=== PATIENT | female | born 1995 | race Caucasian/White ===

== ENCOUNTER 2018-06-11 12:38 | Emergency (ER) | payer BC ==
--- NOTE | 2018-06-11 14:38 | EDM.PDOC ---
ED HPI GENERAL MEDICAL PROBLEM - General Chief Complaint: Skin Complaint Stated Complaint: CYST Time Seen by Provider: 06/11/18 14:01 Source of Information: Reports: Patient, RN Notes Reviewed History Limitations: Reports: No Limitations - History of Present Illness INITIAL COMMENTS - FREE TEXT/NARRATIVE: Patient is a 22-year-old female who presents to the ED today for the evaluation of a painful cyst. She states she was seen at the walk-in clinic at [place] this morning and the provider there sent her to the ED for further evaluation. The patient noticed that she started to develop this cyst near her bikini line on and this has become bigger, harder and has essentially worsened since then. The walk-in clinic did draw labs and her white count was found to be 14,900. the patient denies any fevers/chills, nausea/vomiting/diarrhea, difficulty urinating, or vaginal discharge. She states that there has been no drainage from the cyst. She also notes that she has had cysts like this in the past and they have had to drain them and use packing material for further drainage. Groin Pain Score (Numeric/FACES): 4 - Related Data Allergies Allergy/AdvReac Type Severity Reaction Status Date / Time No Known Allergies Allergy Verified 06/11/18 13:09 Home Meds: Home Meds Doxycycline [Vibramycin] 100 mg PO BID #20 tab 06/11/18 [Rx] Past Medical History - Past Surgical History Musculoskeletal Surgical History: Reports: Other (See Below) Other Musculoskeletal Surgeries/Procedures:: ankle surgery Social & Family History - Tobacco Use Smoking Status *Q: Never Smoker Second Hand Smoke Exposure: No - Caffeine Use Caffeine Use: Reports: None - Recreational Drug Use Recreational Drug Use: No ED ROS GENERAL - Review of Systems Review Of Systems: See Below Constitutional: Denies: Fever, Chills, Malaise, Decreased Appetite, Weight Loss HEENT: Reports: No Symptoms Respiratory: Reports: No Symptoms Cardiovascular: Reports: No Symptoms Endocrine: Reports: No Symptoms GI/Abdominal: Reports: No Symptoms : Reports: No Symptoms Musculoskeletal: Reports: No Symptoms Skin: Reports: Lesions Neurological: Reports: No Symptoms Psychiatric: Reports: No Symptoms Hematologic/Lymphatic: Reports: No Symptoms Immunologic: Reports: No Symptoms ED EXAM, SKIN/RASH Exam: See Below Exam Limited By: No Limitations General Appearance: Alert, WD/WN, No Apparent Distress Throat/Mouth: Normal Inspection, Normal Oropharynx, No Airway Compromise Respiratory/Chest: No Respiratory Distress, Lungs Clear, Normal Breath Sounds, No Accessory Muscle Use, Chest Non-Tender Cardiovascular: Normal Peripheral Pulses, Regular Rate, Rhythm, No Murmur GI/Abdominal: Normal Bowel Sounds, Soft, Non-Tender, No Distention, Other (firm mass noted just above mons pubis, this is around 10cm in diameter, this is tender to palpation.) Extremities: Normal Inspection, Normal Capillary Refill Neurological: Alert, Oriented, Normal Cognition, No Motor/Sensory Deficits Psychiatric: Normal Affect, Normal Mood Skin: Warm, Dry, Intact, Normal Color, No Rash Location, Skin: Abdomen Characteristics: Erythematous Associated features: Tenderness Course - Vital Signs Last Recorded V/S: Last Vital Signs Temp 97.7 F 06/11/18 13:07 Pulse 90 06/11/18 13:07 Resp 16 06/11/18 13:07 BP Pulse Ox 100 06/11/18 13:07 - Re-Assessments/Exams Free Text/Narrative Re-Assessment/Exam: 06/11/18 14:38 Patient presents to the ED for the evaluation of a painful cyst in her bikini line. Although this cyst is quite large it is deep and would not be able to be drained in the ED today. The patient does not show any other systemic signs of illness will provide her with prescription for doxycycline twice a day for 10 days for resolution of this. She was educated on return precautions, she agrees to comply. Departure - Departure Time of Disposition: 14:39 Disposition: Home, Self-Care 01 Condition: Fair Clinical Impression: Abscess - Discharge Information *PRESCRIPTION DRUG MONITORING PROGRAM REVIEWED*: No *COPY OF PRESCRIPTION DRUG MONITORING REPORT IN PATIENT MAHNAZ: No Prescriptions: Doxycycline [Vibramycin] 100 mg PO BID #20 tab Instructions: Skin Abscess, [id number] Referrals: Jeni Mallory PA [Primary Care Provider] - Forms: ED Department Discharge Additional Instructions: You have been evaluated in the ED today for your cyst under bikini line. The cyst was too deep to be able to incise and drain at ER visit today, due to lack of other systemic symptoms like fever/chills it is likely that oral antibiotics will take care of this infection. A prescription for doxycycline 100 mg twice daily has been prescribed to you. This was sent to [facility] pharmacy, located on [address]. Please take this as directed. If you should develop fevers/chills, or other signs of the abscess spreading, such as difficulty urinating or drainage, this would be cause for concern and you should return immediately for re-evaluation. However please give the antibiotics at least 48 hours to see if this doesn't clear up the infection. Please return to the ED if your symptoms change or worsen.
== END 2018-06-11 14:47 | disposition home or self-care (01) ==
LOC: JD.ED 12:38
DX: L02.214 Cutaneous abscess of groin (principal)
CPT/HCPCS: 99283

== ENCOUNTER 2019-07-17 10:07 | Inpatient (IN) | payer BC ==
[~2019-07-17 10:07] MED LIST: Bupivacaine 0.25% 10 ML SDV ONE
[2019-07-17] MEDS ORDERED: Oxytocin/Lactated Ringers 10 UNIT/1,000 ML BAG IV SCH ×2 (10:15)
[2019-07-17] MEDS ORDERED: Sodium Chloride 0.9% 10 ML Syringe FLUSH PRN (10:15)
[2019-07-17] MEDS ORDERED: Ondansetron 4 MG/2 ML SDV IVPUSH PRN (10:15)
[2019-07-17] MEDS ORDERED: Nalbuphine 10 MG/ML Syringe IVPUSH PRN (10:15)
[2019-07-17] MEDS ORDERED: Acetaminophen 325 MG Tab PO PRN (10:15)
--- NOTE | 2019-07-17 10:18 | PCM.LDHP ---
L&D History of Present Illness - General Date of Service: 07/17/19 Admit Problem/Dx: Patient Status Order with Admit Dx/Problem 07/17/19 10:15 Patient Status [ADT] Routine Admission Diagnosis/Problem Admission Diagnosis/Problem Gestational hypertension Source of Information: Patient History Limitations: Reports: No Limitations - History of Present Illness Introduction:: Patient is a 23 y/o at 39 2/7 wks who presents from clinic for IOL after findings of 2 mild range BP's. Doing well otherwise. No symptoms. 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: Polycystic Ovaries : 1 Para: 0 LMP (Approximate): - Past Surgical History Musculoskeletal Surgical History: Reports: Other (See Below) Other Musculoskeletal Surgeries/Procedures:: ankle surgery Social & Family History - Tobacco Use Smoking Status *Q: Never Smoker - Caffeine Use Caffeine Use: Reports: None - Alcohol Use Alcohol Use History: No - Recreational Drug Use Recreational Drug Use: No H&P Review of Systems - Review of Systems: Review Of Systems: See Below General: Reports: No Symptoms Pulmonary: Reports: No Symptoms Cardiovascular: Reports: No Symptoms Gastrointestinal: Reports: No Symptoms Genitourinary: Reports: No Symptoms Musculoskeletal: Reports: No Symptoms Psychiatric: Reports: No Symptoms Neurological: Reports: No Symptoms L&D Exam - Exam Exam: See Below - OB Specific Contraction Intensity: Irritability Movement: Active Heart Tones: Present Heart Tones per Min: 145 Presentation: Vertex - Leblanc Score Leblanc Score Cervix Position: Posterior Leblanc Score Consistency: Soft Leblanc Score Effacement: 31-50% Leblanc Score Dilation: 1-2 cm Leblanc Score Infant's Station: -3 Leblanc Score Total: 4 - Exam General: Alert, Oriented, Cooperative Lungs: Clear to Auscultation, Normal Respiratory Effort Cardiovascular: Regular Rate, Regular Rhythm GI/Abdominal Exam: Soft, Non-Tender Genitourinary: Normal external exam Extremities: Normal Inspection Skin: Warm, Dry, Intact - Problem List (1) 39 weeks gestation of SNOMED Code(s): 53420221 ICD Code: Z3A.39 - 39 WEEKS GESTATION OF Status: Acute Current Visit: Yes (2) Gestational hypertension SNOMED Code(s): 701539147 ICD Code: O13.9 - GESTATIONAL HTN W/O SIGNIFICANT PROTEINURIA, UNSP TRIMESTER Status: Acute Current Visit: Yes Qualifiers: Trimester: third trimester Qualified Code(s): O13.3 - Gestational [ -induced] hypertension without significant proteinuria, third trimester (3) GBS (group B Streptococcus carrier), +RV culture, currently SNOMED Code(s): 9263383438069, [id number], 6962412497453 ICD Code: O99.820 - STREPTOCOCCUS B CARRIER STATE COMPLICATING Status: Acute Current Visit: Yes (4) BMI 45.0-49.9, adult SNOMED Code(s): 765125836, 584281245 ICD Code: Z68.42 - BODY MASS INDEX (BMI) 45.0-49.9, ADULT Status: Acute Current Visit: Yes Problem List Initiated/Reviewed/Updated: Yes Orders Last 24hrs: Active Orders 24 hr Category Date Time Status Patient Status [ADT] Routine ADT 07/17/19 10:15 Ordered Communication Order [RC] ASDIRECTED Care 07/17/19 10:15 Ordered Communication Order [RC] ASDIRECTED Care 07/17/19 10:15 Ordered Communication Order [RC] ASDIRECTED Care 07/17/19 10:15 Ordered Communication Order [RC] ASDIRECTED Care 07/17/19 10:15 Ordered Heart Tones [RC] ASDIRECTED Care 07/17/19 10:16 Ordered Monitoring [RC] INTERMITTENT Care 07/17/19 10:15 Ordered Non Stress Test [RC] PER UNIT ROUTINE Care 07/17/19 10:15 Ordered Notify Provider [RC] ASDIRECTED Care 07/17/19 10:15 Ordered Notify Provider [RC] PRN Care 07/17/19 10:15 Ordered Peripheral IV Care [RC] . DIRECTED Care 07/17/19 10:16 Ordered Up ad Katie [RC] ASDIRECTED Care 07/17/19 10:16 Ordered Vaginal Exam [RC] ASDIRECTED Care 07/17/19 10:15 Ordered Vital Signs [RC] ASDIRECTED Care 07/17/19 10:15 Ordered Regular Diet [DIET] Diet 07/17/19 Breakfast Ordered ALANINE AMINOTRANSFERASE,ALT [CHEM] Routine Lab 07/17/19 10:15 Ordered ASPARTATE AMNIOTRANSFERASE,AST [CHEM] Routine Lab 07/17/19 10:15 Ordered CBC W/O DIFF,HEMOGRAM [HEME] Routine Lab 07/17/19 10:15 Ordered CREATININE W/GFR [CHEM] Routine Lab 07/17/19 10:15 Ordered PROTEIN/CREATININE RATIO,URINE [URCHEM] Routine Lab 07/17/19 10:15 Ordered RAPID PLASMA REAGIN,RPR [CHEM] Routine Lab 07/17/19 10:15 Ordered TYPE AND SCREEN [BBK] Routine Lab 07/17/19 10:15 Ordered Acetaminophen [Tylenol] Med 07/17/19 10:15 Ordered 650 mg PO Q4H PRN Lactated Ringers [Ringers, Lactated] 1,000 ml Med 07/17/19 10:15 Ordered IV ASDIRECTED Nalbuphine [Nubain] Med 07/17/19 10:15 Ordered 10 mg IVPUSH Q2H PRN Ondansetron [Zofran] Med 07/17/19 10:15 Ordered 4 mg IVPUSH Q4H PRN Oxytocin/Lactated Ringers [Pitocin in LR 10 Units/1,000 Med 07/17/19 10:15 Ordered ML] 10 unit in 1,000 ml IV .CONTINUOUS Oxytocin/Lactated Ringers [Pitocin in LR 10 Units/1,000 Med 07/17/19 10:15 Ordered ML] 10 unit in 1,000 ml IV TITRATE Sodium Chloride 0.9% [Saline Flush] Med 07/17/19 10:15 Ordered 10 ml FLUSH ASDIRECTED PRN miSOPROStoL [Cytotec] Med 07/17/19 10:15 Ordered 25 mcg VAG Q4H PRN Electronic Heart Tones Ext w TOCO [WOMSER] Oth 07/17/19 10:15 Ordered Routine Medication Administration Instruction [OM.PC] Routine Oth 07/17/19 10:15 Ordered Peripheral IV Insertion Adult [OM.PC] Routine Oth 07/17/19 10:15 Ordered Resuscitation Status Routine Resus Stat 07/17/19 10:15 Ordered Assessment/Plan Comment:: * Labs to be done including AST, ALT, Creatine, and urine protein to creatinine ratio * Cytotec for IOL to start * GBS positive, will add in PCN further in induction process * Close monitoring of BP's * Pain management per patient preference * Anticipate
[2019-07-17] MEDS: Misoprostol 25 MCG (1/4 of 100 MCG) Tab VAG PRN ×3 (11:00→19:00)
--- NOTE | 2019-07-17 19:40 | PCM.PNLD ---
Labor Progress Note - VS & Meds Vital Signs: Last Vital Signs Temp 37.0 C 07/17/19 10:15 Pulse 89 07/17/19 10:15 Resp 16 07/17/19 10:15 BP 123/77 07/17/19 10:15 Pulse Ox 95 07/17/19 10:15 Active Medications: Current Medications Acetaminophen (Tylenol) 650 mg PO Q4H PRN PRN Reason: Pain (Mild 1-3) and fever Lactated Ringer's (Ringers, Lactated) 1,000 mls @ 40 mls/hr IV ASDIRECTED SOCO Oxytocin/Lactated Ringer's (Pitocin In Lr 10 Units/1,000 Ml) 10 unit in 1,000 mls @ 12 mls/hr IV TITRATE SOCO; Protocol Oxytocin/Lactated Ringer's (Pitocin In Lr 10 Units/1,000 Ml) 10 unit in 1,000 mls @ 500 mls/hr IV .CONTINUOUS SOCO Misoprostol (Cytotec) 25 mcg VAG Q4H PRN PRN Reason: cervical ripening Last Admin: 07/17/19 15:01 Dose: 25 mcg Nalbuphine HCl (Nubain) 10 mg IVPUSH Q2H PRN PRN Reason: Pain Ondansetron HCl (Zofran) 4 mg IVPUSH Q4H PRN PRN Reason: Nausea/Vomiting Sodium Chloride (Saline Flush) 10 ml FLUSH ASDIRECTED PRN PRN Reason: Keep Vein Open - Uterine Contractions Uterine Monitoring Mode: External [place] Contraction Intensity: Mild to Moderate - Monitoring Monitor Mode: External Ultrasound Heart Rate (FHR) Baseline: 140 Heart Rate (FHR) Variability: Moderate (6-25 bmp) Accelerations: Present, 15x15 Decelerations: None Strip Review: Category I - Vaginal Exam Dilation (cm): 3 Effacement (Percent): 50 Station: -2 Cervical Position: Posterior - Labor Progress (Free Text) Labor Progress: Doing well. Rates contractions as a 3/10. Exam shows cervix to be about 3 cm, but still posterior and relatively thick. Will place 3rd dose of cytotec, but anticipate switching to pitocin at next assessment and to start GBS prophylaxis
[2019-07-17] MEDS ORDERED: Ampicillin 2 GM in Sodium Chloride 0.9% 100 ML IV ONE (23:00)
[2019-07-17] MEDS: Lactated Ringers 1,000 ML IV SCH (23:15)
[2019-07-18] MEDS: Ampicillin 1 GM in Sodium Chloride 0.9% 100 ML IV SCH ×3 (04:21→20:33)
--- NOTE | 2019-07-18 06:13 | PCM.PNLD ---
Labor Progress Note - VS & Meds Vital Signs: Last Vital Signs Temp 37.0 C 07/17/19 10:15 Pulse 89 07/17/19 10:15 Resp 16 07/17/19 10:15 BP 123/77 07/17/19 10:15 Pulse Ox 95 07/17/19 10:15 Active Medications: Current Medications Acetaminophen (Tylenol) 650 mg PO Q4H PRN PRN Reason: Pain (Mild 1-3) and fever Lactated Ringer's (Ringers, Lactated) 1,000 mls @ 40 mls/hr IV ASDIRECTED SOCO Last Admin: 07/17/19 23:15 Dose: 40 mls/hr Oxytocin/Lactated Ringer's (Pitocin In Lr 10 Units/1,000 Ml) 10 unit in 1,000 mls @ 12 mls/hr IV TITRATE SOCO; Protocol Last Titration: 07/18/19 04:22 Dose: 14 munits/min, 84 mls/hr Oxytocin/Lactated Ringer's (Pitocin In Lr 10 Units/1,000 Ml) 10 unit in 1,000 mls @ 500 mls/hr IV .CONTINUOUS SOCO Ampicillin Sodium 1 gm/ Sodium (Chloride) 100 mls @ 200 mls/hr IV Q4H SOCO Last Admin: 07/18/19 04:21 Dose: 200 mls/hr Nalbuphine HCl (Nubain) 10 mg IVPUSH Q2H PRN PRN Reason: Pain Ondansetron HCl (Zofran) 4 mg IVPUSH Q4H PRN PRN Reason: Nausea/Vomiting Sodium Chloride (Saline Flush) 10 ml FLUSH ASDIRECTED PRN PRN Reason: Keep Vein Open Discontinued Medications Ampicillin Sodium 2 gm/ Sodium (Chloride) 100 mls @ 200 mls/hr IV ONETIME ONE Stop: 07/17/19 23:29 Last Admin: 07/17/19 23:15 Dose: 200 mls/hr Misoprostol (Cytotec) 25 mcg VAG Q4H PRN PRN Reason: cervical ripening Last Admin: 07/17/19 19:00 Dose: 25 mcg - Uterine Contractions Uterine Monitoring Mode: External [place] Contraction Intensity: Moderate to Strong - Monitoring Monitor Mode: External Ultrasound Heart Rate (FHR) Baseline: 145 Heart Rate (FHR) Variability: Moderate (6-25 bmp) Accelerations: Present, 15x15 Decelerations: None Strip Review: Category I - Vaginal Exam Dilation (cm): 4 Effacement (Percent): 75 Station: -2 Cervical Position: Posterior - Labor Progress (Free Text) Labor Progress: Doing well. Last hour contractions have been more uncomfortable. Difficult to monitor contractions. Reviewed option of AROM and patient would like to consider slightly longer
[2019-07-18] MEDS ORDERED: Bupivacaine/fentaNYL/NS 100 ML Bag EPIDUR PRN (07:39)
[2019-07-18] MEDS ORDERED: fentaNYL 100 MCG/2 ML SDV EPIDUR PRN (07:39)
[2019-07-18] MEDS ORDERED: diphenhydrAMINE 50 MG/ML SDV IVPUSH PRN (07:39)
[2019-07-18] MEDS ORDERED: ePHEDrine 50 MG/ML SDV IVPUSH PRN (07:39)
[2019-07-18] MEDS: Lactated Ringers 1,000 ML IV SCH ×2 (08:17→09:46)
--- NOTE | 2019-07-18 08:53 | PCM.PREANE ---
Preanesthetic Assessment - Procedure Proposed Procedure: epidural - Anesthesia/Transfusion/Family Hx Anesthesia History: Prior Anesthesia Without Reaction Family History of Anesthesia Reaction: No Transfusion History: No Prior Transfusion(s) - Review of Systems General: Fatigue Pulmonary: No Symptoms Cardiovascular: No Symptoms Gastrointestinal: Abdominal Pain (labor) Neurological: No Symptoms Other: Reports: None - Physical Assessment Vital Signs: Last Vital Signs Temp 37.0 C 07/17/19 10:15 Pulse 89 07/17/19 10:15 Resp 16 07/17/19 10:15 BP 123/77 07/17/19 10:15 Pulse Ox 95 07/17/19 10:15 Height: 1.7 m Weight: 145.059 kg ASA Class: 2 Mental Status: Alert & Oriented x3 Airway Class: Mallampati = 2 Dentition: Reports: Normal Dentition Thyro-Mental Finger Breadths: 3 Mouth Opening Finger Breadths: 3 ROM/Head Extension: Full Lungs: Clear to Auscultation, Normal Respiratory Effort Cardiovascular: Regular Rate, Regular Rhythm - Lab Values: Laboratory Last Values WBC 8.73 K/mm3 (3.98-10.04) 07/17/19 10:39 RBC 4.42 M/mm3 (3.98-5.22) 07/17/19 10:39 Hgb 12.9 gm/dl (11.2-15.7) 07/17/19 10:39 Hct 38.3 % (34.1-44.9) 07/17/19 10:39 MCV 86.7 fl (79.4-94.8) 07/17/19 10:39 MCH 29.2 pg (25.6-32.2) 07/17/19 10:39 MCHC 33.7 g/dl (32.2-35.5) 07/17/19 10:39 RDW Std Deviation 42.5 fL (36.4-46.3) 07/17/19 10:39 Plt Count 238 K/mm3 (182-369) 07/17/19 10:39 MPV 12.4 fl (9.4-12.3) H 07/17/19 10:39 Creatinine 0.8 mg/dL (0.55-1.02) 07/17/19 10:39 Est Cr Clr Drug Dosing TNP 07/17/19 10:39 Estimated GFR (MDRD) > 60 mL/min (>60) 07/17/19 10:39 AST 14 U/L (15-37) L 07/17/19 10:39 ALT 18 U/L (14-59) 07/17/19 10:39 RPR Non-reactive (NONREACTIVE) 07/17/19 10:39 Blood Type B POSITIVE 07/17/19 10:39 Gel Antibody Screen Negative 07/17/19 10:39 - Allergies Allergies/Adverse Reactions: Allergies Allergy/AdvReac Type Severity Reaction Status Date / Time No Known Allergies Allergy Verified 06/11/18 13:09 - Anesthesia Plan Pre-Op Medication Ordered: None - Acknowledgements Anesthesia Type Planned: Epidural Pt an Appropriate Candidate for the Planned Anesthesia: Yes Alternatives and Risks of Anesthesia Discussed w Pt/Guardian: Yes Pt/Guardian Understands and Agrees with Anesthesia Plan: Yes PreAnesthesia Questionnaire Gastrointestinal History: Reports: GERD 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: Polycystic 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 Musculoskeletal History: Reports: Other (See Below) Endocrine/Metabolic History: Reports: Hypothyroidism - Past Surgical History Musculoskeletal Surgical History: Reports: Other (See Below) Other Musculoskeletal Surgeries/Procedures:: ankle surgery - SUBSTANCE USE Smoking Status *Q: Never Smoker Tobacco Use Within Last Twelve Months: No Second Hand Smoke Exposure: No Recreational Drug Use History: No Recreational Drug Type: Reports: Marijuana/Hashish Recreational Drug Last Use: years ago - HOME MEDS Home Medications: Home Meds Levothyroxine 25 mcg PO ACBREAKFAST 07/17/19 [History] Pnv No.95/Ferrous Fum/Folic AC [ Caplet] 1 each PO DAILY 07/17/19 [ History] - CURRENT (IN HOUSE) MEDS Current Meds: Current Medications Acetaminophen (Tylenol) 650 mg PO Q4H PRN PRN Reason: Pain (Mild 1-3) and fever Diphenhydramine HCl (Benadryl) 25 mg IVPUSH Q6H PRN PRN Reason: Itching Ephedrine Sulfate (Ephedrine Sulfate) 5 mg IVPUSH ASDIRECTED PRN PRN Reason: HYPOTENTSION Fentanyl (Sublimaze) 100 mcg EPIDUR Q3H PRN PRN Reason: Pain Last Admin: 07/18/19 08:18 Dose: 100 mcg Fentanyl/Bupivacaine HCl (Fentanyl/Bupivacaine/Ns 2 Mcg-0.125% 100 Ml) 100 ml EPIDUR CONTINUOUS PRN PRN Reason: Pain Last Admin: 07/18/19 08:18 Dose: 100 ml Lactated Ringer's (Ringers, Lactated) 1,000 mls @ 40 mls/hr IV ASDIRECTED SOCO Last Admin: 07/18/19 08:17 Dose: 40 mls/hr Oxytocin/Lactated Ringer's (Pitocin In Lr 10 Units/1,000 Ml) 10 unit in 1,000 mls @ 12 mls/hr IV TITRATE SOCO; Protocol Last Titration: 07/18/19 04:22 Dose: 14 munits/min, 84 mls/hr Oxytocin/Lactated Ringer's (Pitocin In Lr 10 Units/1,000 Ml) 10 unit in 1,000 mls @ 500 mls/hr IV .CONTINUOUS SOCO Ampicillin Sodium 1 gm/ Sodium (Chloride) 100 mls @ 200 mls/hr IV Q4H SOCO Last Admin: 07/18/19 08:17 Dose: 200 mls/hr Nalbuphine HCl (Nubain) 10 mg IVPUSH Q2H PRN PRN Reason: Pain Ondansetron HCl (Zofran) 4 mg IVPUSH Q4H PRN PRN Reason: Nausea/Vomiting Sodium Chloride (Saline Flush) 10 ml FLUSH ASDIRECTED PRN PRN Reason: Keep Vein Open Discontinued Medications Ampicillin Sodium 2 gm/ Sodium (Chloride) 100 mls @ 200 mls/hr IV ONETIME ONE Stop: 07/17/19 23:29 Last Admin: 07/17/19 23:15 Dose: 200 mls/hr Misoprostol (Cytotec) 25 mcg VAG Q4H PRN PRN Reason: cervical ripening Last Admin: 07/17/19 19:00 Dose: 25 mcg
--- NOTE | 2019-07-18 09:23 | PCM.SN ---
- Free Text/Narrative Note: 0915 Called by RN team. Patient just finished epidural and had BP's of 76/43, 99/38 , and 89/28. Baby with deceleration into the 70's up to 100's after 4 minutes. BP treated with 3 doses of ephedrine. Pitocin already off. FHR with slow return eventually to baseline. Still with some late decelerations after this which resolve with position changes. Will continue to work on BP's, position changes. OR crew also altered to possibility of . Patient and family also express understanding. Yessi Powell MD
--- NOTE | 2019-07-18 11:54 | PCM.DEL ---
L & D Note - General Info Date of Service: 07/18/19 - Delivery Note Labor: Induced by ARM, Induced by Oxytocin Cervical Ripening Method: Misoprostil Delivery Outcome: Livebirth Delivery Method: Spontaneous Vaginal Delivery-Single Infant Delivery Mode: Spontaneous Presentation: Right Occiput Anterior (DAVID) Nuchal Cord: None Anesthesia Type: Epidural Amniotic Fluid Description: Meconium Stained Episiotomy Type: None Laceration: None Placenta: Intact, Spontaneous Cord: 3 Vessels Estimated Blood Loss: 200 : Bulb Syringe, Stimulated, Warmed, [place] Used, Warmer Used Delivery Comments (Free Text/Narrative):: Patient found to be complete and began pushing. With maternal pushing effort head delivered from an DAVID presentation. No nuchal cord present. With gentle downward tractions the body and shoulders delivered. Infant placed on maternal abdomen. Cord clamped and cut. Cord gas segment obtained but not run by respiratory due to limited supplies and baby initially doing very well. Cord blood obtained. Placenta allowed time to separate and expelled intact. Inspection of the perineum showed no lacerations - General Info Date of Service: 07/18/19 - Patient Data Vitals - Most Recent: Last Vital Signs Temp 37.0 C 07/17/19 10:15 Pulse 89 07/17/19 10:15 Resp 16 07/17/19 10:15 BP 123/77 07/17/19 10:15 Pulse Ox 95 07/17/19 10:15 Weight - Most Recent: 145.059 kg I&O - Last 24 Hours: Intake & Output 07/17/19 07/18/19 07/18/19 22:59 06:59 14:59 Intake Total 560 100 Balance 560 100 Lab Results Last 24 Hours: Laboratory Results - last 24 hr 07/17/19 07/17/19 Range/Units 10:39 10:39 RPR Non-reactive (NONREACTIVE) Blood Type B POSITIVE Gel Antibody Screen Negative Med Orders - Current: Current Medications Acetaminophen (Tylenol) 650 mg PO Q4H PRN PRN Reason: Pain (Mild 1-3) and fever Diphenhydramine HCl (Benadryl) 25 mg IVPUSH Q6H PRN PRN Reason: Itching Ephedrine Sulfate (Ephedrine Sulfate) 5 mg IVPUSH ASDIRECTED PRN PRN Reason: HYPOTENTSION Fentanyl (Sublimaze) 100 mcg EPIDUR Q3H PRN PRN Reason: Pain Last Admin: 07/18/19 08:18 Dose: 100 mcg Fentanyl/Bupivacaine HCl (Fentanyl/Bupivacaine/Ns 2 Mcg-0.125% 100 Ml) 100 ml EPIDUR CONTINUOUS PRN PRN Reason: Pain Last Admin: 07/18/19 08:18 Dose: 100 ml Lactated Ringer's (Ringers, Lactated) 1,000 mls @ 40 mls/hr IV ASDIRECTED SOCO Last Admin: 07/18/19 09:46 Dose: 40 mls/hr Oxytocin/Lactated Ringer's (Pitocin In Lr 10 Units/1,000 Ml) 10 unit in 1,000 mls @ 12 mls/hr IV TITRATE SOCO; Protocol Last Titration: 07/18/19 04:22 Dose: 14 munits/min, 84 mls/hr Oxytocin/Lactated Ringer's (Pitocin In Lr 10 Units/1,000 Ml) 10 unit in 1,000 mls @ 500 mls/hr IV .CONTINUOUS SOCO Ampicillin Sodium 1 gm/ Sodium (Chloride) 100 mls @ 200 mls/hr IV Q4H SOCO Last Admin: 07/18/19 08:17 Dose: 200 mls/hr Nalbuphine HCl (Nubain) 10 mg IVPUSH Q2H PRN PRN Reason: Pain Ondansetron HCl (Zofran) 4 mg IVPUSH Q4H PRN PRN Reason: Nausea/Vomiting Sodium Chloride (Saline Flush) 10 ml FLUSH ASDIRECTED PRN PRN Reason: Keep Vein Open Discontinued Medications Ampicillin Sodium 2 gm/ Sodium (Chloride) 100 mls @ 200 mls/hr IV ONETIME ONE Stop: 07/17/19 23:29 Last Admin: 07/17/19 23:15 Dose: 200 mls/hr Misoprostol (Cytotec) 25 mcg VAG Q4H PRN PRN Reason: cervical ripening Last Admin: 07/17/19 19:00 Dose: 25 mcg - Problem List & Annotations (1) 39 weeks gestation of SNOMED Code(s): 39046736 Code(s): Z3A.39 - 39 WEEKS GESTATION OF Status: Acute Current Visit: Yes (2) Gestational hypertension SNOMED Code(s): 038318229 Code(s): O13.9 - GESTATIONAL HTN W/O SIGNIFICANT PROTEINURIA, UNSP TRIMESTER Status: Acute Current Visit: Yes Qualifiers: Trimester: third trimester Qualified Code(s): O13.3 - Gestational [ -induced] hypertension without significant proteinuria, third trimester (3) GBS (group B Streptococcus carrier), +RV culture, currently SNOMED Code(s): 5957124268832, 621320069, 4744762324754 Code(s): O99.820 - STREPTOCOCCUS B CARRIER STATE COMPLICATING Status: Acute Current Visit: Yes (4) BMI 45.0-49.9, adult SNOMED Code(s): 449211962, 983981161 Code(s): Z68.42 - BODY MASS INDEX (BMI) 45.0-49.9, ADULT Status: Acute Current Visit: Yes (5) Meconium stained amniotic fluid, delivered, current hospitalization SNOMED Code(s): 283688990, 171396610 Code(s): O77.0 - LABOR AND DELIVERY COMPLICATED BY MECONIUM IN AMNIOTIC FLUID Status: Acute Current Visit: Yes (6) Vaginal delivery SNOMED Code(s): 008135845 Code(s): O80 - ENCOUNTER FOR FULL-TERM UNCOMPLICATED DELIVERY Status: Acute Current Visit: Yes - Problem List Review Problem List Initiated/Reviewed/Updated: Yes - My Orders Last 24 Hours: My Active Orders 07/18/19 03:00 Ampicillin 1 gm Sodium Chloride 0.9% [Normal Saline] 100 ml IV Q4H - Assessment Assessment:: 23 y/o PPD#0 - Plan Plan:: * Monitor BP's after delivery * Routine cares * Breast feeding * Discharge home in 2 days
[2019-07-18] MEDS ORDERED: Benzocaine/Menthol 20%-0.5% Spray 56 GM Canister TOP PRN (12:41)
[2019-07-18] MEDS ORDERED: Acetaminophen 325 MG Tab PO PRN (12:41)
[2019-07-18] MEDS ORDERED: Docusate Sodium 100 MG Cap PO PRN (12:41)
[2019-07-18] MEDS ORDERED: Witch Hazel Medicated Pads 40/Jar TOP PRN (12:41)
[2019-07-18] MEDS: Ibuprofen 600 MG Tab PO PRN (22:35)
[2019-07-19] MEDS: Ibuprofen 600 MG Tab PO PRN ×2 (04:37→10:33)
--- NOTE | 2019-07-19 05:50 | PCM.PNPP ---
- General Info Date of Service: 07/19/19 Functional Status: Reports: Pain Controlled, Tolerating Diet, Ambulating, Urinating - Review of Systems General: Reports: No Symptoms Pulmonary: Reports: No Symptoms Cardiovascular: Reports: No Symptoms Gastrointestinal: Reports: No Symptoms Genitourinary: Reports: No Symptoms Musculoskeletal: Reports: No Symptoms Neurological: Reports: No Symptoms - Patient Data Vital Signs - Most Recent: Last Vital Signs Temp 36.6 C 07/18/19 20:55 Pulse 88 07/18/19 20:50 Resp 14 07/18/19 20:50 BP 135/91 H 07/18/19 20:55 Pulse Ox 98 07/18/19 20:50 Weight - Most Recent: 145.059 kg I&O - Last 24 Hours: Intake & Output 07/18/19 07/18/19 07/19/19 14:59 22:59 06:59 Intake Total 240 Output Total 400 Balance -160 Med Orders - Current: Current Medications Acetaminophen (Tylenol) 650 mg PO Q4H PRN PRN Reason: mild pain or fever Benzocaine/Menthol (Dermoplast Pain Relief [place]) 0 gm TOP ASDIRECTED PRN PRN Reason: Perineal Comfort Measure Docusate Sodium (Colace) 100 mg PO BID PRN PRN Reason: Constipation Ibuprofen (Motrin) 600 mg PO Q6H PRN PRN Reason: Mild pain or fever Last Admin: 07/19/19 04:37 Dose: 600 mg Levothyroxine Sodium (Levothyroxine) 25 mcg PO ACBREAKFAST Counts include 234 beds at the [facility] (Tucks) 1 pad TOP ASDIRECTED PRN PRN Reason: Perineal Comfort Measure Discontinued Medications Acetaminophen (Tylenol) 650 mg PO Q4H PRN PRN Reason: Pain (Mild 1-3) and fever Bupivacaine HCl (Sensorcaine-Mpf 0.25%) 10 ml .ROUTE .STK-MED ONE Stop: 07/17/19 00:01 Diphenhydramine HCl (Benadryl) 25 mg IVPUSH Q6H PRN PRN Reason: Itching Ephedrine Sulfate (Ephedrine Sulfate) 5 mg IVPUSH ASDIRECTED PRN PRN Reason: HYPOTENTSION Fentanyl (Sublimaze) 100 mcg EPIDUR Q3H PRN PRN Reason: Pain Last Admin: 04/07/20 08:18 Dose: 100 mcg Fentanyl/Bupivacaine HCl (Fentanyl/Bupivacaine/Ns 2 Mcg-0.125% 100 Ml) 100 ml EPIDUR CONTINUOUS PRN PRN Reason: Pain Last Admin: 07/18/19 08:18 Dose: 100 ml Lactated Ringer's (Ringers, Lactated) 1,000 mls @ 40 mls/hr IV ASDIRECTED SOCO Last Admin: 07/18/19 09:46 Dose: 40 mls/hr Oxytocin/Lactated Ringer's (Pitocin In Lr 10 Units/1,000 Ml) 10 unit in 1,000 mls @ 12 mls/hr IV TITRATE SOCO; Protocol Last Titration: 07/18/19 04:22 Dose: 14 munits/min, 84 mls/hr Oxytocin/Lactated Ringer's (Pitocin In Lr 10 Units/1,000 Ml) 10 unit in 1,000 mls @ 500 mls/hr IV .CONTINUOUS SOCO Ampicillin Sodium 2 gm/ Sodium (Chloride) 100 mls @ 200 mls/hr IV ONETIME ONE Stop: 07/17/19 23:29 Last Admin: 07/17/19 23:15 Dose: 200 mls/hr Ampicillin Sodium 1 gm/ Sodium (Chloride) 100 mls @ 200 mls/hr IV Q4H SOCO Last Admin: 07/18/19 20:33 Dose: Not Given Misoprostol (Cytotec) 25 mcg VAG Q4H PRN PRN Reason: cervical ripening Last Admin: 07/17/19 19:00 Dose: 25 mcg Nalbuphine HCl (Nubain) 10 mg IVPUSH Q2H PRN PRN Reason: Pain Ondansetron HCl (Zofran) 4 mg IVPUSH Q4H PRN PRN Reason: Nausea/Vomiting Sodium Chloride (Saline Flush) 10 ml FLUSH ASDIRECTED PRN PRN Reason: Keep Vein Open - Interaction Infant Disposition, : [place] to Nursery Interaction: To Nursery to Visit Feeding: Other (see below) (pumped) Support Person: - Recovery Exam Fundal Tone: Firm Fundal Level: At Umbilicus Fundal Placement: Midline Lochia Amount: Small Lochia Color: Rubra/Red Perineum Description: Intact, Minimal Bruising/Swelling Bladder Status: Voiding Urinary Elimination: Voided - Exam General: Alert, Oriented, Cooperative GI/Abdominal Exam: Soft, Non-Tender Extremities: Normal Inspection - Problem List & Annotations (1) 39 weeks gestation of SNOMED Code(s): 42046246 Code(s): Z3A.39 - 39 WEEKS GESTATION OF Status: Acute Current Visit: Yes (2) Gestational hypertension SNOMED Code(s): 979150895 Code(s): O13.9 - GESTATIONAL HTN W/O SIGNIFICANT PROTEINURIA, UNSP TRIMESTER Status: Acute Current Visit: Yes Qualifiers: Trimester: third trimester Qualified Code(s): O13.3 - Gestational [ -induced] hypertension without significant proteinuria, third trimester (3) GBS (group B Streptococcus carrier), +RV culture, currently SNOMED Code(s): 7918196617796, 524010235, 6565623998174 Code(s): O99.820 - STREPTOCOCCUS B CARRIER STATE COMPLICATING Status: Acute Current Visit: Yes (4) BMI 45.0-49.9, adult SNOMED Code(s): 094809605, 614727805 Code(s): Z68.42 - BODY MASS INDEX (BMI) 45.0-49.9, ADULT Status: Acute Current Visit: Yes (5) Meconium stained amniotic fluid, delivered, current hospitalization SNOMED Code(s): 848282469, 543110025 Code(s): O77.0 - LABOR AND DELIVERY COMPLICATED BY MECONIUM IN AMNIOTIC FLUID Status: Acute Current Visit: Yes (6) Vaginal delivery SNOMED Code(s): 652584074 Code(s): O80 - ENCOUNTER FOR FULL-TERM UNCOMPLICATED DELIVERY Status: Acute Current Visit: Yes - Problem List Review Problem List Initiated/Reviewed/Updated: Yes - My Orders Last 24 Hours: My Active Orders 07/18/19 12:41 Activity as Tolerated [RC] PER UNIT ROUTINE Vital Signs [RC] 09,15,21,03 Acetaminophen [Tylenol] 650 mg PO Q4H PRN Benzocaine/Menthol [Dermoplast Pain Relief [place]] See Dose Instructions TOP ASDIRECTED PRN Docusate Sodium [Colace] 100 mg PO BID PRN Ibuprofen [Motrin] 600 mg PO Q6H PRN witch Ravindra [Tucks] 1 pad TOP ASDIRECTED PRN Assess Lochia [WOMSER] Per Unit Routine Assess Uterine Involution [WOMSER] Per Unit Routine Breast Pump [WOMSER] Per Unit Routine Heat Therapy [OM.PC] PRN Ice Therapy [OM.PC] Per Unit Routine Perineal Care [OM.PC] Per Unit Routine Peripheral IV Discontinue [OM.PC] Routine Sitz Bath [OM.PC] Per Unit Routine 07/18/19 Lunch Regular Diet [DIET] 07/19/19 06:00 Levothyroxine 25 mcg PO ACBREAKFAST 07/19/19 12:41 Heat Therapy [OM.PC] PRN - Assessment Assessment:: 23 y/o PPD#1 - Plan Plan:: * BP's normal to mild range after delivery * Routine cares * Pumping while baby in nursery. Baby hopefully out of nursery today * Discharge home tomorrow
[2019-07-19] MEDS: Levothyroxine 25 MCG Tab PO SCH (06:49)
--- NOTE | 2019-07-19 09:46 | PCM48HPAN ---
Post Anesthesia Note - EVALUATION WITHIN 48HRS OF ANESTHETIC Vital Signs in Normal Range: Yes Patient Participated in Evaluation: Yes Respiratory Function Stable: Yes Airway Patent: Yes Cardiovascular Function Stable: Yes Hydration Status Stable: Yes Pain Control Satisfactory: Yes Nausea and Vomiting Control Satisfactory: Yes Mental Status Recovered: Yes Vital Signs: Last Vital Signs Temp 36.9 C 07/19/19 03:45 Pulse 85 07/19/19 03:45 Resp 15 07/19/19 03:45 BP 128/68 07/19/19 03:48 Pulse Ox 95 07/19/19 03:45
--- NOTE | 2019-07-20 07:08 | PCM.PNPP ---
- General Info Date of Service: 07/20/19 Functional Status: Reports: Pain Controlled, Tolerating Diet, Ambulating, Urinating - Review of Systems General: Reports: No Symptoms Pulmonary: Reports: No Symptoms Cardiovascular: Reports: No Symptoms Gastrointestinal: Reports: No Symptoms Genitourinary: Reports: No Symptoms Musculoskeletal: Reports: No Symptoms Neurological: Reports: No Symptoms - Patient Data Vital Signs - Most Recent: Last Vital Signs Temp 36.7 C 07/20/19 03:28 Pulse 79 07/20/19 03:28 Resp 14 07/20/19 03:28 BP 141/88 H 07/20/19 03:28 Pulse Ox 95 07/20/19 03:28 Weight - Most Recent: 145.059 kg I&O - Last 24 Hours: Intake & Output 07/19/19 07/20/19 07/20/19 22:59 06:59 14:59 Intake Total 320 Balance 320 Med Orders - Current: Current Medications Acetaminophen (Tylenol) 650 mg PO Q4H PRN PRN Reason: mild pain or fever Benzocaine/Menthol (Dermoplast Pain Relief [place]) 0 gm TOP ASDIRECTED PRN PRN Reason: Perineal Comfort Measure Docusate Sodium (Colace) 100 mg PO BID PRN PRN Reason: Constipation Ibuprofen (Motrin) 600 mg PO Q6H PRN PRN Reason: Mild pain or fever Last Admin: 07/19/19 10:33 Dose: 600 mg Levothyroxine Sodium (Levothyroxine) 25 mcg PO ACBREAKFAST SOCO Last Admin: 07/19/19 06:49 Dose: 25 mcg Witch Olivia (Tucks) 1 pad TOP ASDIRECTED PRN PRN Reason: Perineal Comfort Measure Discontinued Medications Acetaminophen (Tylenol) 650 mg PO Q4H PRN PRN Reason: Pain (Mild 1-3) and fever Bupivacaine HCl (Sensorcaine-Mpf 0.25%) 10 ml .ROUTE .STK-MED ONE Stop: 07/17/19 00:01 Diphenhydramine HCl (Benadryl) 25 mg IVPUSH Q6H PRN PRN Reason: Itching Ephedrine Sulfate (Ephedrine Sulfate) 5 mg IVPUSH ASDIRECTED PRN PRN Reason: HYPOTENTSION Fentanyl (Sublimaze) 100 mcg EPIDUR Q3H PRN PRN Reason: Pain Last Admin: 07/18/19 08:18 Dose: 100 mcg Fentanyl/Bupivacaine HCl (Fentanyl/Bupivacaine/Ns 2 Mcg-0.125% 100 Ml) 100 ml EPIDUR CONTINUOUS PRN PRN Reason: Pain Last Admin: 07/18/19 08:18 Dose: 100 ml Lactated Ringer's (Ringers, Lactated) 1,000 mls @ 40 mls/hr IV ASDIRECTED SOCO Last Admin: 07/18/19 09:46 Dose: 40 mls/hr Oxytocin/Lactated Ringer's (Pitocin In Lr 10 Units/1,000 Ml) 10 unit in 1,000 mls @ 12 mls/hr IV TITRATE SOCO; Protocol Last Titration: 07/18/19 04:22 Dose: 14 munits/min, 84 mls/hr Oxytocin/Lactated Ringer's (Pitocin In Lr 10 Units/1,000 Ml) 10 unit in 1,000 mls @ 500 mls/hr IV .CONTINUOUS SOCO Ampicillin Sodium 2 gm/ Sodium (Chloride) 100 mls @ 200 mls/hr IV ONETIME ONE Stop: 07/17/19 23:29 Last Admin: 07/17/19 23:15 Dose: 200 mls/hr Ampicillin Sodium 1 gm/ Sodium (Chloride) 100 mls @ 200 mls/hr IV Q4H SOCO Last Admin: 07/18/19 20:33 Dose: Not Given Misoprostol (Cytotec) 25 mcg VAG Q4H PRN PRN Reason: cervical ripening Last Admin: 07/17/19 19:00 Dose: 25 mcg Nalbuphine HCl (Nubain) 10 mg IVPUSH Q2H PRN PRN Reason: Pain Ondansetron HCl (Zofran) 4 mg IVPUSH Q4H PRN PRN Reason: Nausea/Vomiting Sodium Chloride (Saline Flush) 10 ml FLUSH ASDIRECTED PRN PRN Reason: Keep Vein Open - Interaction Infant Disposition, : [place] in Room with Family Interaction: Holding Infant Feeding: Breastfed ; Nursed Well Support Person: - Recovery Exam Fundal Tone: Firm Fundal Level: At Umbilicus Fundal Placement: Midline Lochia Amount: Small Lochia Color: Rubra/Red Perineum Description: Intact, Minimal Bruising/Swelling Episiotomy/Laceration: None Bladder Status: Voiding Urinary Elimination: Voided - Exam General: Alert, Oriented, Cooperative GI/Abdominal Exam: Soft, Non-Tender Extremities: Normal Inspection Skin: Warm, Dry, Intact - Problem List & Annotations (1) 39 weeks gestation of SNOMED Code(s): 24820222 Code(s): Z3A.39 - 39 WEEKS GESTATION OF Status: Acute Current Visit: Yes (2) Gestational hypertension SNOMED Code(s): 946975366 Code(s): O13.9 - GESTATIONAL HTN W/O SIGNIFICANT PROTEINURIA, UNSP TRIMESTER Status: Acute Current Visit: Yes Qualifiers: Trimester: third trimester Qualified Code(s): O13.3 - Gestational [ -induced] hypertension without significant proteinuria, third trimester (3) GBS (group B Streptococcus carrier), +RV culture, currently SNOMED Code(s): 6758442814031, 488540632, 1769998930724 Code(s): O99.820 - STREPTOCOCCUS B CARRIER STATE COMPLICATING Status: Acute Current Visit: Yes (4) BMI 45.0-49.9, adult SNOMED Code(s): 666649660, 953944860 Code(s): Z68.42 - BODY MASS INDEX (BMI) 45.0-49.9, ADULT Status: Acute Current Visit: Yes (5) Meconium stained amniotic fluid, delivered, current hospitalization SNOMED Code(s): 879307330, 862673031 Code(s): O77.0 - LABOR AND DELIVERY COMPLICATED BY MECONIUM IN AMNIOTIC FLUID Status: Acute Current Visit: Yes (6) Vaginal delivery SNOMED Code(s): 909457562 Code(s): O80 - ENCOUNTER FOR FULL-TERM UNCOMPLICATED DELIVERY Status: Acute Current Visit: Yes - Problem List Review Problem List Initiated/Reviewed/Updated: Yes - My Orders Last 24 Hours: My Active Orders 07/19/19 12:41 Heat Therapy [OM.PC] PRN 07/20/19 07:08 Ready for Discharge [RC] PER UNIT ROUTINE - Assessment Assessment:: 23 y/o PPD#2 - Plan Plan:: * BP's mostly mild range. No need for medications. Patient without symptoms. Will have her perform BP check in 1 week. This can be done in [place] if needed * Routine cares * Breast feeding * Discharge home today
--- NOTE | 2019-07-20 07:08 | PCM.DCSUM1 ---
Discharge Summary - Discharge Data Discharge Date: 07/20/19 Discharge Disposition: Home, Self-Care 01 Condition: Good - Referral to Home Health Primary Care Physician: Yessi Powell MD - Discharge Diagnosis/Problem(s) (1) 39 weeks gestation of SNOMED Code(s): 86391628 ICD Code: Z3A.39 - 39 WEEKS GESTATION OF Status: Acute Current Visit: Yes (2) Gestational hypertension SNOMED Code(s): 635604300 ICD Code: O13.9 - GESTATIONAL HTN W/O SIGNIFICANT PROTEINURIA, UNSP TRIMESTER Status: Acute Current Visit: Yes Qualifiers: Trimester: third trimester Qualified Code(s): O13.3 - Gestational [ -induced] hypertension without significant proteinuria, third trimester (3) GBS (group B Streptococcus carrier), +RV culture, currently SNOMED Code(s): 3885062582163, 633456941, 1663714127981 ICD Code: O99.820 - STREPTOCOCCUS B CARRIER STATE COMPLICATING Status: Acute Current Visit: Yes (4) BMI 45.0-49.9, adult SNOMED Code(s): 978562313, 096429306 ICD Code: Z68.42 - BODY MASS INDEX (BMI) 45.0-49.9, ADULT Status: Acute Current Visit: Yes (5) Meconium stained amniotic fluid, delivered, current hospitalization SNOMED Code(s): 983010149, 195029508 ICD Code: O77.0 - LABOR AND DELIVERY COMPLICATED BY MECONIUM IN AMNIOTIC FLUID Status: Acute Current Visit: Yes (6) Vaginal delivery SNOMED Code(s): 403057021 ICD Code: O80 - ENCOUNTER FOR FULL-TERM UNCOMPLICATED DELIVERY Status: Acute Current Visit: Yes - Patient Summary/Data Complications: None Consults: None Recommended Follow-up Testing/Procedures: Follow up in 1 week for BP check, 3 weeks for check Hospital Course: 23 y/o at 39 2/7 wks who was noted to have mild range BP's at a clinic appt. Sent for IOL for gestational HTN. This was done with cytotec and then pitocin and AROM. After her epidural did have one long prolonged decelerations (due to hypotension) and then late decelerations. Luckily made very rapid change at this point as well and underwent an uncomplicated . See delivery note. BP's remained normal to mild range. She was discharged home on PPD#2 - Patient Instructions Diet: Regular Diet as Tolerated Activity: As Tolerated Activity, Other: Pelvic rest for 6 weeks Driving: May Drive Today Showering/Bathing: May Shower Showering/Bathing, Other: May Bath Notify Provider of: Fever, Increased Pain, Swelling and Redness, Drainage, Nausea and/or Vomiting - Discharge Plan *PRESCRIPTION DRUG MONITORING PROGRAM REVIEWED*: No *COPY OF PRESCRIPTION DRUG MONITORING REPORT IN PATIENT MAHNAZ: No Home Medications: Home Meds Levothyroxine 25 mcg PO ACBREAKFAST 07/17/19 [History] Pnv No.95/Ferrous Fum/Folic AC [ Caplet] 1 each PO DAILY 07/17/19 [ History] Docusate Sodium [Colace] 100 mg PO BID PRN cap 07/20/19 [Rx] Ibuprofen [Motrin] 600 mg PO Q6H PRN tablet 07/20/19 [Rx] Referrals: Yessi Powell MD [Primary Care Provider] - (1 week for BP check 3 weeks for check ) - Discharge Summary/Plan Comment DC Time >30 min.: No - Patient Data Vitals - Most Recent: Last Vital Signs Temp 36.7 C 07/20/19 03:28 Pulse 79 07/20/19 03:28 Resp 14 07/20/19 03:28 BP 141/88 H 07/20/19 03:28 Pulse Ox 95 07/20/19 03:28 Weight - Most Recent: 145.059 kg I&O - Last 24 hours: Intake & Output 07/19/19 07/20/19 07/20/19 22:59 06:59 14:59 Intake Total 320 Balance 320 Med Orders - Current: Current Medications Acetaminophen (Tylenol) 650 mg PO Q4H PRN PRN Reason: mild pain or fever Benzocaine/Menthol (Dermoplast Pain Relief [place]) 0 gm TOP ASDIRECTED PRN PRN Reason: Perineal Comfort Measure Docusate Sodium (Colace) 100 mg PO BID PRN PRN Reason: Constipation Ibuprofen (Motrin) 600 mg PO Q6H PRN PRN Reason: Mild pain or fever Last Admin: 07/19/19 10:33 Dose: 600 mg Levothyroxine Sodium (Levothyroxine) 25 mcg PO ACBREAKFAST SOCO Last Admin: 07/19/19 06:49 Dose: 25 mcg Witch Olivia (Tucks) 1 pad TOP ASDIRECTED PRN PRN Reason: Perineal Comfort Measure Discontinued Medications Acetaminophen (Tylenol) 650 mg PO Q4H PRN PRN Reason: Pain (Mild 1-3) and fever Bupivacaine HCl (Sensorcaine-Mpf 0.25%) 10 ml .ROUTE .STK-MED ONE Stop: 07/17/19 00:01 Diphenhydramine HCl (Benadryl) 25 mg IVPUSH Q6H PRN PRN Reason: Itching Ephedrine Sulfate (Ephedrine Sulfate) 5 mg IVPUSH ASDIRECTED PRN PRN Reason: HYPOTENTSION Fentanyl (Sublimaze) 100 mcg EPIDUR Q3H PRN PRN Reason: Pain Last Admin: 07/18/19 08:18 Dose: 100 mcg Fentanyl/Bupivacaine HCl (Fentanyl/Bupivacaine/Ns 2 Mcg-0.125% 100 Ml) 100 ml EPIDUR CONTINUOUS PRN PRN Reason: Pain Last Admin: 07/18/19 08:18 Dose: 100 ml Lactated Ringer's (Ringers, Lactated) 1,000 mls @ 40 mls/hr IV ASDIRECTED SOCO Last Admin: 07/18/19 09:46 Dose: 40 mls/hr Oxytocin/Lactated Ringer's (Pitocin In Lr 10 Units/1,000 Ml) 10 unit in 1,000 mls @ 12 mls/hr IV TITRATE SOCO; Protocol Last Titration: 07/18/19 04:22 Dose: 14 munits/min, 84 mls/hr Oxytocin/Lactated Ringer's (Pitocin In Lr 10 Units/1,000 Ml) 10 unit in 1,000 mls @ 500 mls/hr IV .CONTINUOUS SOCO Ampicillin Sodium 2 gm/ Sodium (Chloride) 100 mls @ 200 mls/hr IV ONETIME ONE Stop: 07/17/19 23:29 Last Admin: 07/17/19 23:15 Dose: 200 mls/hr Ampicillin Sodium 1 gm/ Sodium (Chloride) 100 mls @ 200 mls/hr IV Q4H SOCO Last Admin: 07/18/19 20:33 Dose: Not Given Misoprostol (Cytotec) 25 mcg VAG Q4H PRN PRN Reason: cervical ripening Last Admin: 07/17/19 19:00 Dose: 25 mcg Nalbuphine HCl (Nubain) 10 mg IVPUSH Q2H PRN PRN Reason: Pain Ondansetron HCl (Zofran) 4 mg IVPUSH Q4H PRN PRN Reason: Nausea/Vomiting Sodium Chloride (Saline Flush) 10 ml FLUSH ASDIRECTED PRN PRN Reason: Keep Vein Open
[2019-07-20] MEDS: Levothyroxine 25 MCG Tab PO SCH (07:23)
== END 2019-07-20 14:42 | disposition home or self-care (01) | DRG 560 ==
LOC: JD.OBCHECK 10:07 → JD.OB 10:09 → JD.OBCHECK 10:14 → JD.OB 10:15 → OBSVTOIN 07-18 11:36 → JD.OB 07-18 11:37
PROVIDERS: ADMIT Obstetrics & Gynecology; ATTEND Obstetrics & Gynecology
PROC: 10E0XZZ Delivery of Products of Conception, External Approach (ICD-10-PCS; principal; 2019-07-18)
PROC: 3E0P7VZ Introduction of Hormone into Female Reproductive, Via Natural or Artificial Opening (ICD-10-PCS; 2019-07-18)
PROC: 3E0R3BZ Introduction of Anesthetic Agent into Spinal Canal, Percutaneous Approach (ICD-10-PCS; 2019-07-18)
PROC: 10907ZC Drainage of Amniotic Fluid, Therapeutic from Products of Conception, Via Natural or Artificial Opening (ICD-10-PCS; 2019-07-18)
DX: O99.824 Streptococcus B carrier state complicating childbirth (principal); O77.0 Labor and delivery complicated by meconium in amniotic fluid; O13.4 Gestational [pregnancy-induced] hypertension without significant proteinuria, complicating childbirth; O99.284 Endocrine, nutritional and metabolic diseases complicating childbirth; E03.9 Hypothyroidism, unspecified; Z3A.39 39 weeks gestation of pregnancy; Z37.0 Single live birth; O76 Abnormality in fetal heart rate and rhythm complicating labor and delivery
CPT/HCPCS: 01967; 36415; 51702; 59025; 59409; 82565; 84450; 84460; 85027; 86592; 86850; 86900; 86901; A9270-GY; J0290; J2590; J3010; J3490; J7050; J7120